=== PATIENT | male | born 1955 | race Caucasian/White ===

== ENCOUNTER 2020-04-23 18:00 | Emergency (ER) | payer MEDICARE ==
[2020-04-23] MEDS ORDERED: BABY ASPIRIN 81 MG CHEW ONE (18:28)
[2020-04-23] MEDS: BABY ASPIRIN 81 MG CHEW PO ONE ×2 (18:28→18:30)
--- NOTE | 2020-04-23 18:51 | ERPHSYRPT ---
<JOSUE PEARSON - Last Filed: 04/23/20 18:46> - History of Present Illness Time Seen by Provider: 04/23/20 18:26 Historian: patient Exam Limitations: no limitations Patient Subjective Stated Complaint: Pt states "I was watching tv and my chest started to hurt, I got dizzy and I took a nitro and it helped a little.". 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 pt resting comfortably on the bed. Physician History: 64 years old male with history of paroxysmal atrial fibrillation on Xarelto/defibrillator/pacemaker, coronary artery disease status post stenting, hypertension, hyperlipidemia presented in the ER with sudden onset substernal chest pain while he was watching TV almost an hour prior to arrival, moderate intensity, dull pressure/fullness sensation with radiation to left shoulder blade area with associated lightheadedness and dizziness but no shortness of breath or palpitations. Patient took 1 nitro and after 45 minutes it started to improve and currently pain is almost completely resolved. Denies any fever chills cough or sick contact. Timing/Duration: hour(s) (1), sudden, improved Activities at Onset: rest Quality: fullness, pressure Location: substernal Chest Pain Radiation: back Severity of Pain-Max: moderate Severity of Pain-Current: none Modifying Factors: Improves With: nitroglycerin Associated Symptoms: dizziness Prior Chest Pain/Cardiac Workup: cardiac cath Nitro Today/Relief: 0.4 mg x 1 Aspirin Treatment Today: no aspirin today Allergies/Adverse Reactions: STEROIDS Allergy (Uncoded 04/25/16 17:00) Home Medications: Atorvastatin Calcium [Lipitor 40Mg] 40 mg PO DAILY 04/25/16 [History] Carvedilol [Coreg] 25 mg PO BID 04/25/16 [History] Rivaroxaban 10 mg Tablet [Xarelto 10 mg Tablet] 10 mg PO DAILY 04/25/16 [History] Sacubitril/Valsartan [Entresto 49 mg-51 mg Tablet] 1 each PO BID 04/25/16 [History] Spironolactone 25 mg [Aldactone 25 MG] 25 mg PO DAILY 04/25/16 [History] Zolpidem Tartrate [Ambien] 10 mg PO HS 04/25/16 [History] PANTOPRAZOLE 40 mg Tablet [Protonix 40MG Tablet] 40 mg PO QAM 04/23/20 [History] Hx Tetanus, Diphtheria Vaccination/Date Given: No Hx Influenza Vaccination/Date Given: No Hx Pneumococcal Vaccination/Date Given: No Immunizations Up to Date: Yes Travel Risk - International Travel Have you traveled outside of the country in past 3 weeks: No - Coronavirus Screening Are you exhibiting any of the following symptoms?: No Close contact with a COVID-19 positive Pt in past 14-21 Days: No - Review of Systems Constitutional: No Symptoms Eyes: No Symptoms Ears, Nose, & Throat: No Symptoms Respiratory: No Symptoms Cardiac: Chest Pain Abdominal/Gastrointestinal: No Symptoms Genitourinary Symptoms: No Symptoms Musculoskeletal: No Symptoms Skin: No Symptoms Neurological: Dizziness Psychological: No Symptoms Endocrine: No Symptoms Hematologic/Lymphatic: No Symptoms Immunological/Allergic: No Symptoms - Past Medical History Pertinent Past Medical History: Yes Cardiac History: Angina, Myocardial Infarction ([place]), Other Respiratory History: COPD, Other Musculoskeletal History: Arthritis, Other Psycho-Social History: Depression - Past Surgical History Past Surgical History: Yes Cardiac: Cardiac Catheterization, Cardiac Stent, Internal Defibrillator, Pacemaker Musculoskeletal: Orthopedic Surgery Other Surgical History: LT KNEE X1. RT KNEE X3. LT GR TOE JOINT. SHOULDER SURGERY X2 - Social History Smoking Status: Former smoker How long have you smoked: 40 Exposure to second hand smoke: No Alcohol Use: None Drug Use: none Patient Lives Alone: Yes Significant Family History: heart disease - Physical Exam General Appearance: no apparent distress, alert Eye Exam: eyes nml inspection Ears, Nose, Throat Exam: normal ENT inspection, pharynx normal Neck Exam: normal inspection, supple, full range of motion Respiratory Exam: normal breath sounds, lungs clear, No chest tenderness Cardiovascular Exam: regular rate/rhythm, normal heart sounds Gastrointestinal/Abdomen Exam: soft, No tenderness Back Exam: normal inspection Extremity Exam: normal inspection, normal range of motion Neurologic Exam: alert, oriented x 3, cooperative Skin Exam: normal color SpO2 Interpretation: normal SpO2: 97 O2 Delivery: Room Air - Course EKG Interpreted by Me: RATE (72), Right Meridian Deviation, NORMAL INTERVALS, Other (Nonspecific T wave changes) - Progress Progress: improved Air Movement: good Progress Note: 04/23/20 18:50 64 years old is evaluated for sudden onset of chest pain almost an hour prior to arrival which improved with taking 1 nitro at home. EKG showed paced rhythm with no acute ST elevations. Chest pain work-up as ordered. Patient refused aspirin. Is taking Xarelto regularly. No shortness of breath. Work-up is pending at present, care is transferred to Dr. Chilel at shift change for final disposition. Blood Culture(s) Obtained: No Antibiotics given: No Discussed with : Desiree - Departure Clinical Impression: Chest pain with low risk for cardiac etiology Condition: Stable Referrals: CHARANJIT WADSWORTH [Primary Care Provider] - ELINOR SINGH MD [NON-STAFF PHY W/O PRIVILEGES] - Follow Up with PCP/3 days Instructions: Chest Pain (DC), Angina (DC) Additional Instructions: Discharge/Care Plan GAETANO NAGY was seen on 04/23/20 in the Emergency Room. The patient was counseled regarding Diagnosis,Lab results, Imaging studies, need for follow up and when to return to the Emergency Room. Prescriptions given: Discharge Note I have spoken with the patient and/or caregivers. I have explained the patient's condition, diagnosis and treatment plan based on the information available to me at this time. I have answered the patient's and/or caregiver's questions and addressed any concerns. The patient and/or caregivers have as good understanding of the patient's diagnosis, condition and treatment plan as can be expected at this point. The vital signs have been stable. The patient's condition is stable and appropriate for discharge from the emergency department. The patient will pursue further outpatient evaluation with the primary care physician or other designated or consulting physician as outlined in the discharge instructions. The patient and/or caregivers are agreeable to this plan of care and follow-up instructions have been explained in detail. The patient and/or caregivers have received these instruction. The patient/and or caregivers are aware that any significant change in condition or worsening of symptoms should prompt an immediate return to this or the closest emergency department or call 911. GAETANO NAGY was seen on 04/23/20 n the Emergency Room. At that time you were treated for an emergent condition, during your visit Laboratory, Radiology and/or other procedures may have been ordered. It is very important that you follow-up with your Primary Care Physician CHARANJIT WADSWORTH within the next 24-48 hours to review your Emergency Room visit and the final results of testing that was ordered. Some test results such as Urine Cultures, Blood Cultures, and other cultures if ordered will not be finalized for 24-48 hours. If you do not have a Primary Care Provider please call the medical records department at [phone] ext [phone] to obtain a copy of your results or you may sign into our patient portal to obtain these results by visiting us @ [email or web address] and completing the following steps: 1. Click on the Patient Portal link 2. Click the Patient Self Enrollment Link to complete the enrollment form and entering your 3. Once the enrollment form is completed you will receive an email with a temporary ID and password at the email address you provided. 4. Next choose a user name and password. Your user name must be at least 4 characters long and your password must be at least 4 characters long. 5. Choose a security question from the list and provide your answer to the question. If you already have signed into the Health Portal you may access your Health Care Information 03/12 by the following steps: 1. Login to our website @ [email or web address] 2. Enter your original user name and password. FAQS The [facility] Health Portal is an online tool that contains your Lab Results, Radiology Reports, Visit History, Discharge Instructions and Health Summary Lab and Radiology Results will not be available for 72 hours on the portal. The Portal is a secure site, passwords are encryted and URLs are re-written so they cannot be copied and pasted. You and authorized family members are the only ones who can access your Portal. Also there is a timeout feature that protects your information if you leave the Portal page open. If you have technical difficulty please use the Contact Us link on the page this will allow you to submit any questions you have regarding the Portal or you may contact the Medical Record Department at [phone] ext [phone]. Prescriptions: Nitroglycerin 0.4 mg SL Q5MIN PRN MR X 3 PRN #30 tab.subl PRN Reason: Chest Pain <KULDEEP,TRACY - Last Filed: 12/12/20 19:16> - History of Present Illness Physician History: Is denying any chest pain feeling better. - Nursing Vital Signs Nursing Vital Signs: Initial Vital Signs Temperature 97.9 F 04/23/20 18:01 Pulse Rate 66 04/23/20 18:01 Respiratory Rate 20 04/23/20 18:01 Blood Pressure 132/79 04/23/20 18:01 O2 Sat by Pulse Oximetry 97 04/23/20 18:01 Pain Scale Pain Intensity 5 - Radiology Exams Chest X-ray Interpretation: Reviewed by me, Negative, No Pneumonia, No Pneumothorax Ordered Tests: Active Orders 24 hr Category Date Time Status Security Shift Manager STAT Care 04/23/20 18:24 Active EKG-ER Only STAT Care 04/23/20 18:24 Active IV Insertion STAT Care 04/23/20 18:24 Active Oxygen-ED Only Nasal Cannula 2 lpm Care 04/23/20 18:24 Active CHEST 1 VIEW (PORTABLE) Stat Exams 04/23/20 18:24 Taken CBC W DIFF Stat Lab 04/23/20 18:38 Completed CMP Stat Lab 04/23/20 18:38 Completed NT PRO BNP Stat Lab 04/23/20 18:38 Completed TROPONIN Q3H Lab 04/23/20 Ordered TROPONIN Q3H Lab 04/23/20 18:38 Completed TROPONIN Q3H Lab 04/24/20 00:30 Ordered TROPONIN Q3H Lab 04/24/20 03:30 Ordered TROPONIN Q3H Lab 04/24/20 06:30 Ordered Medication Summary Discontinued Medications Generic Name Dose Route Start Last Admin Trade Name Freq PRN Reason Stop Dose Admin Aspirin 324 mg 04/23/20 18:24 04/23/20 18:30 Baby Aspirin 81 Mg Chew PO 04/23/20 18:25 Not Given STAT ONE Aspirin Confirm 04/23/20 18:28 Baby Aspirin 81 Mg Chew Administered 04/23/20 18:29 Dose 324 mg .ROUTE .STK-MED ONE Lab/Rad Data: Laboratory Result Diagrams 04/23/20 18:38 04/23/20 18:38 Laboratory Results 04/23/20 04/23/20 04/23/20 Range/Units 18:38 18:38 18:38 WBC 10.1 (4.0-10.5) K/mm3 RBC 5.08 (4.1-5.6) M/mm3 Hgb 14.5 (12.5-18.0) gm/dl Hct 44.3 (42-50) % MCV 87.2 (78-100) fl MCH 28.5 (26-32) pg MCHC 32.7 (32-36) g/dl RDW 13.7 (11.5-14.0) % Plt Count 285 (150-450) K/mm3 MPV 10.9 (7.5-11.0) fl Gran % 49.3 (36.0-66.0) % Eos # (Auto) 0.17 (0-0.5) Absolute Lymphs (auto) 3.67 (1.0-4.6) Absolute Monos (auto) 1.27 (0.0-1.3) Lymphocytes % 36.2 (24.0-44.0) % Monocytes % 12.5 H (0.0-12.0) % Eosinophils % 1.7 (0.00-5.0) % Basophils % 0.3 (0.0-0.4) % Absolute Granulocytes 5.00 (1.4-6.9) Basophils # 0.03 (0-0.4) Sodium 136 L (137-145) mmol/L Potassium 4.6 (3.5-5.1) mmol/L Chloride 103 (98-107) mmol/L Carbon Dioxide 28 (22-30) mmol/L Anion Gap 10.2 (5-15) MEQ/L BUN 18 (9-20) mg/dL Creatinine 1.15 (0.66-1.25) mg/dL Estimated GFR > 60.0 ML/MIN Glucose 109 H (74-106) mg/dL Calcium 9.4 (8.4-10.2) mg/dL Total Bilirubin 0.50 (0.2-1.3) mg/dL AST 17 (17-59) U/L ALT 15 (0-50) U/L Alkaline Phosphatase 85 (38-126) U/L Troponin I < 0.012 (0.000-0.034) ng/mL NT-Pro-B Natriuret Pep 369 (0-900) pg/mL Serum Total Protein 6.6 (6.3-8.2) g/dL Albumin 3.9 (3.5-5.0) g/dL - Progress Progress Note: 04/23/20 19:06 Is feeling better denies any chest pain awaiting all the labs. CBC CMP within normal range. Counseled pt/family regarding: lab results, diagnosis, need for follow-up, rad results - Departure Departure Disposition: Home Critical Care Time: Yes Critical Care Time(excluding separately billable procedures): Critical 30-74 mins
[2020-04-23 18:59] LABS: BASOPHIL % 0.3 % (0.0-0.4); Basophil (Absolute #) 0.03 (0-0.4); Eosinophil % 1.7 % (0.00-5.0); Eosinophil (Absolute #) 0.17 (0-0.5); Hematocrit 44.3 % (42-50); Hemoglobin 14.5 gm/dl (12.5-18.0); Lymphocyte (Absolute #) 3.67 (1.0-4.6); Lymphocytes % 36.2 % (24.0-44.0); Mean Cell Volume 87.2 fl (78-100); Mean Corpuscular Hemoglobin 28.5 pg (26-32); Mean Corpuscular Hgb Concent. 32.7 g/dl (32-36); Mean Platelet Volume 10.9 fl (7.5-11.0); Monocyte (Absolute #) 1.27 (0.0-1.3); Monocytes % 12.5 % (0.0-12.0); Neutrophil % 49.3 % (36.0-66.0); Platelet Count 285 K/mm3 (150-450); Red Blood Count 5.08 M/mm3 (4.1-5.6); Red Cell Distribution Width 13.7 % (11.5-14.0); White Blood Count 10.1 K/mm3 (4.0-10.5)
[2020-04-23 19:00] LABS: ALBUMIN 3.9 g/dL (3.5-5.0); ALKALINE PHOSPHATASE 85 U/L (38-126); ANION GAP 10.2 MEQ/L (5-15); BLOOD UREA NITROGEN 18 mg/dL (9-20); CHLORIDE 103 mmol/L (98-107); Calcium 9.4 mg/dL (8.4-10.2); Carbon Dioxide 28 mmol/L (22-30); Creatinine 1 1.15 mg/dL (0.66-1.25); EST GLOMERULAR FILTRATION RATE > 60.0 ML/MIN; Glucose 109 mg/dL (74-106); NT PRO BNP 369 pg/mL (0-900); Potassium 4.6 mmol/L (3.5-5.1); SGOT/AST 17 U/L (17-59); SGPT/ALT 15 U/L (0-50); SODIUM 136 mmol/L (137-145); Total Protein 6.6 g/dL (6.3-8.2)
[2020-04-23 19:36] VITALS: BP 112/65; PULSE 64; O2SAT 99
--- NOTE | 2020-04-24 07:01 | XRAY ---
Indication: Chest pain. Suspect Covid 19. Comparison: April 10, 2012. Portable apical lordotic chest again demonstrates mild right hemidiaphragm elevation with adjacent subsegmental atelectasis/scarring. No focal infiltrate, consolidation, or large effusion. Heart is not enlarged for AP portable technique and demonstrates new left-sided AICD. Bony thorax intact. Impression: Nonacute chest with chronic features.
== END 2020-04-23 19:34 | disposition home or self-care (01) ==
LOC: ED 18:00
DX: R07.9 Chest pain, unspecified (principal)
CPT/HCPCS: 36000; 36415; 71045; 80053; 83880; 84484; 85025; 93005; 93041; 99284; 99291; A9270-GY

== ENCOUNTER 2024-02-08 15:55 | Emergency (ER) | payer MEDICARE ==
[2024-02-08 16:10] VITALS: TEMP 97.7
--- NOTE | 2024-02-08 16:46 | ERPHSYRPT ---
<TRACY LIGHT - Last Filed: 02/08/24 18:48> - History of Present Illness Time Seen by Provider: 02/08/24 16:43 Historian: patient Exam Limitations: no limitations Patient Subjective Stated Complaint: pt reports for the last 3-4 days he's been experiencing shortness of breath and episodes of chest tightness that always go away with rest-pt states today he had some weakness and lightheadedness just sitting in a chair, pt reports he has a history of heart failure, afib with pacer and defib, pt also reports increased stress due to an upcoming hip replacement this week Triage Nursing Assessment: pt is aox3, afebrile, pupils perrl, pt is short of breath at rest, pt with audible wheezes, pt cap refill < 3 seconds, radial pulses strong and equal, pt heart tones normal, pt skin pink warm dry, no edema appreciated. Physician History: mr Linus Redmond is a 68 years old male reportsto ER with chest pain for the last 3-4 days he's been experiencing shortness of breath and episodes of chest tightness that always go away with rest-pt states today he had some weakness and lightheadedness just sitting in a chair, pt reports he has a history of heart failure, afib with pacemaker and defibrilator, He also reports increased stress due to an upcoming hip replacement this week Timing/Duration: today Activities at Onset: emotional stress Quality: aching Location: substernal Chest Pain Radiation: no radiation Severity of Pain-Max: mild Severity of Pain-Current: none Modifying Factors: Improves With: nothing Associated Symptoms: weakness, dizziness Nitro Today/Relief: no nitro taken today Aspirin Treatment Today: no aspirin today Body Map: 1 - area of pain Allergies/Adverse Reactions: STEROIDS Adverse Reaction (Uncoded 02/08/24 16:11) pt states he turns red and feels like he is going to pass out Home Medications: Atorvastatin Calcium [Lipitor 40Mg] 40 mg PO DAILY 04/25/16 [History] Rivaroxaban 10 mg Tablet [Xarelto 10 mg Tablet] 20 mg PO DAILY 04/25/16 [History] Sacubitril/Valsartan [Entresto 49 mg-51 mg Tablet] 1 each PO BID 04/25/16 [History] Spironolactone 25 mg [Aldactone 25 MG] 25 mg PO DAILY 04/25/16 [History] Zolpidem Tartrate [Ambien] 10 mg PO HS 04/25/16 [History] carvediloL [Coreg] 25 mg PO BID 04/25/16 [History] PANTOPRAZOLE 40 mg Tablet [Protonix 40MG Tablet] 40 mg PO QAM 04/23/20 [History] Acetaminophen 325 mg [Tylenol 325 mg] 650 mg PO BID 02/08/24 [History] Amiodarone HCl 200 mg [Cordarone 200 MG] 200 mg PO DAILY 02/08/24 [History] Aspirin EC 81 mg [Ecotrin 81 mg] 81 mg PO DAILY 02/08/24 [History] Famotidine 20 mg [Pepcid 20 MG] 20 mg PO BID 02/08/24 [History] Meloxicam 7.5 mg PO DAILY 02/08/24 [History] Mirtazapine 30 mg [Remeron 30 mg] 30 mg PO HS 02/08/24 [History] Hx Tetanus, Diphtheria Vaccination/Date Given: No Hx Influenza Vaccination/Date Given: No Hx Pneumococcal Vaccination/Date Given: No Immunizations Up to Date: Yes Travel Risk - International Travel Have you traveled outside of the country in past 3 weeks: No - Emerging Infectious Disease Are you exhibiting symptoms associated with any current EIDs: Yes Symptoms: Shortness of Breath - Review of Systems Constitutional: No Fever, No Chills Eyes: No Symptoms Ears, Nose, & Throat: No Symptoms Respiratory: No Cough, No Dyspnea Cardiac: Chest Pain, No Edema, No Syncope Abdominal/Gastrointestinal: No Abdominal Pain, No Nausea, No Vomiting, No Diarrhea Genitourinary Symptoms: No Dysuria Musculoskeletal: No Back Pain, No Neck Pain Skin: No Rash Neurological: No Dizziness, No Focal Weakness, No Sensory Changes Psychological: No Symptoms Endocrine: No Symptoms All Other Systems: Reviewed and Negative - Past Medical History Pertinent Past Medical History: Yes Cardiac History: Angina, Myocardial Infarction ([place]), Other Respiratory History: CHF, Other Musculoskeletal History: Arthritis, Other Psycho-Social History: Depression - Past Surgical History Past Surgical History: Yes Cardiac: Cardiac Catheterization, Cardiac Stent, Internal Defibrillator, Pacemaker Musculoskeletal: Orthopedic Surgery Other Surgical History: LT KNEE X1. RT KNEE X3. LT GR TOE JOINT. SHOULDER SURGERY X2 Significant Family History: heart disease - Social History Smoking Status: Former smoker How long have you smoked: 40 Exposure to second hand smoke: No Alcohol Use: None Drug Use: none Patient Lives Alone: Yes - Social Determinants of Health Will the patient participate in the screening: Yes Do you worry about a steady place to live?: No Do you have any problems with any of the following?: No known problems In the past 12 months,have you had to go without utilities?: No Transportation Issues: No Has anyone in your support network made you feel unsafe?: No Have you or anyone in your house had to go without enough: No - Physical Exam General Appearance: no apparent distress, alert, obese Eye Exam: PERRL/EOMI, eyes nml inspection Ears, Nose, Throat Exam: normal ENT inspection, moist mucous membranes Neck Exam: normal inspection, non-tender, supple, full range of motion Respiratory Exam: normal breath sounds, lungs clear, No respiratory distress Cardiovascular Exam: regular rate/rhythm, normal heart sounds Gastrointestinal/Abdomen Exam: soft, No tenderness, No mass Back Exam: normal inspection, No CVA tenderness, No vertebral tenderness Extremity Exam: normal inspection, normal range of motion Neurologic Exam: alert, oriented x 3, cooperative, normal mood/affect, sensation nml, No motor deficits Skin Exam: normal color, warm, dry SpO2: 97 - Course Nursing assessment & vital signs reviewed: Yes EKG Interpreted by Me: Sinus Rhythm Rhythm Strip: Normal Sinus Rhythm - Progress Progress: improved Air Movement: good Progress Note: 02/08/24 18:11 Patient all labs are negative except for troponin which is 0.077. Normal ranges up to 0.033. Patient denies any chest pain shortness of breath or any other heart related symptoms. As patient has a pacemaker and defibrillator as well as patient has a history of chronic congestive heart failure troponin elevation is usually present. We will repeat another troponin level at 1900 hrs. If trend goes down we will try to discharge patient home. Blood Culture(s) Obtained: No Antibiotics given: No Counseled pt/family regarding: lab results, diagnosis, need for follow-up - Departure Clinical Impression: Chest tightness, Dyspnea Condition: Stable Referrals: CHARANJIT WADSWORTH NP [Primary Care Provider] - Follow up/PCP as directed Instructions: Chest Pain, Adult ED Additional Instructions: Follow up with private doctor tomorrow. Return to ER if any problems. <JENNIFER CULVER - Last Filed: 02/08/24 20:19> - Nursing Vital Signs Nursing Vital Signs: Initial Vital Signs Temperature 97.7 F 02/08/24 15:57 Pulse Rate 80 02/08/24 15:57 Respiratory Rate 24 02/08/24 15:57 Blood Pressure 162/81 02/08/24 15:57 O2 Sat by Pulse Oximetry 97 02/08/24 15:57 Pain Scale Pain Intensity 0 Ordered Tests: Active Orders 24 hr Category Date Time Status EKG-ER Only STAT Care 02/08/24 16:28 Active EKG-ER Only STAT Care 02/08/24 19:11 Active CHEST 1 VIEW (PORTABLE) Stat Exams 02/08/24 16:47 Taken CBC W DIFF Stat Lab 02/08/24 17:06 Completed CMP Stat Lab 02/08/24 17:06 Completed NT PRO BNPII Stat Lab 02/08/24 17:06 Completed TROPONIN Q4H Lab 02/08/24 19:10 Completed TROPONIN Stat Lab 02/08/24 17:06 Completed Lab/Rad Data: Laboratory Result Diagrams 02/08/24 17:06 02/08/24 17:06 Laboratory Results 02/08/24 02/08/24 02/08/24 Range/Units 19:10 17:06 17:06 WBC (4.23-9.07) x10^3/uL RBC (4.63-6.08) x10^6/uL Hgb (13.7-17.5) g/dL Hct (40.1-51.0) % MCV (79.0-92.2) fL MCH (25.7-32.2) pg MCHC (32.3-36.5) g/dL RDW (11.6-14.4) % Plt Count (163-337) x10^3/uL MPV (9.4-12.4) fL Gran % (34.0-67.9) % Immature Gran % (Auto) (0.001-0.429) % Nucleat RBC Rel Count (0.00-0.2) % Eos # (Auto) (0.04-0.54) x10^3/uL Immature Gran # (Auto) (0.001-0.031) x10^3u/L Absolute Lymphs (auto) (1.32-3.57) x10^3/uL Absolute Monos (auto) (0.30-0.82) x10^3/uL Absolute Nucleated RBC (0.00-0.012) x10^3u/L Lymphocytes % (21.8-53.1) % Monocytes % (5.3-12.2) % Eosinophils % (0.8-7.0) % Basophils % (0.2-1.2) % Absolute Granulocytes (1.78-5.38) x10^3/uL Basophils # (0.01-0.08) x10^3/uL Sodium 139 (135-145) mmol/L Potassium 3.8 (3.5-5.1) mmol/L Chloride 101 (98-107) mmol/L Carbon Dioxide 29 (22-30) mmol/L Anion Gap 12.7 (5-15) MEQ/L BUN 12 (9-20) mg/dL Creatinine 1.03 (0.66-1.25) mg/dL Estimated GFR 78.2 ML/MIN Glucose 122 H (74-106) mg/dL Calcium 9.1 (8.4-10.2) mg/dL Total Bilirubin 0.80 (0.2-1.3) mg/dL AST 21 (17-59) U/L ALT 19 (0-50) U/L Alkaline Phosphatase 108 (38-126) U/L Troponin I 0.071 H* 0.077 H* (0.000-0.033) ng/mL NT-Pro-B Natriuret Pep 4010 (<300) pg/mL Serum Total Protein 6.8 (6.3-8.2) g/dL Albumin 4.0 (3.5-5.0) g/dL 02/08/24 Range/Units 17:06 WBC 6.6 (4.23-9.07) x10^3/uL RBC 4.23 L (4.63-6.08) x10^6/uL Hgb 12.4 L (13.7-17.5) g/dL Hct 38.1 L (40.1-51.0) % MCV 90.1 (79.0-92.2) fL MCH 29.3 (25.7-32.2) pg MCHC 32.5 (32.3-36.5) g/dL RDW 13.8 (11.6-14.4) % Plt Count 241 (163-337) x10^3/uL MPV 11.6 (9.4-12.4) fL Gran % 52.5 (34.0-67.9) % Immature Gran % (Auto) 0.2 (0.001-0.429) % Nucleat RBC Rel Count 0.0 (0.00-0.2) % Eos # (Auto) 0.14 (0.04-0.54) x10^3/uL Immature Gran # (Auto) 0.01 (0.001-0.031) x10^3u/L Absolute Lymphs (auto) 2.27 (1.32-3.57) x10^3/uL Absolute Monos (auto) 0.66 (0.30-0.82) x10^3/uL Absolute Nucleated RBC 0.00 (0.00-0.012) x10^3u/L Lymphocytes % 34.6 (21.8-53.1) % Monocytes % 10.1 (5.3-12.2) % Eosinophils % 2.1 (0.8-7.0) % Basophils % 0.5 (0.2-1.2) % Absolute Granulocytes 3.45 (1.78-5.38) x10^3/uL Basophils # 0.03 (0.01-0.08) x10^3/uL Sodium (135-145) mmol/L Potassium (3.5-5.1) mmol/L Chloride (98-107) mmol/L Carbon Dioxide (22-30) mmol/L Anion Gap (5-15) MEQ/L BUN (9-20) mg/dL Creatinine (0.66-1.25) mg/dL Estimated GFR ML/MIN Glucose (74-106) mg/dL Calcium (8.4-10.2) mg/dL Total Bilirubin (0.2-1.3) mg/dL AST (17-59) U/L ALT (0-50) U/L Alkaline Phosphatase (38-126) U/L Troponin I (0.000-0.033) ng/mL NT-Pro-B Natriuret Pep (<300) pg/mL Serum Total Protein (6.3-8.2) g/dL Albumin (3.5-5.0) g/dL - Progress Progress Note: 02/08/24 19:[address] Culver @ 1900: eomi, pharynx pink, lungs have clear breath sounds, no cardiac rub, abdominal B.S. normal, no ankle edema, alert & cooperative., 02/08/24 19:32 Repeat EKG @ 1926: Ventricular paced rhythm @ 68. 02/08/24 20:15 Pt refuses hospitalization. - Departure Departure Disposition: Home Critical Care Time: No
[2024-02-08 17:09] LABS: Absolute Neutrophil Ct (ANC) 3.45 x10^3/uL (1.78-5.38); BASOPHIL % 0.5 % (0.2-1.2); Basophil (Absolute #) 0.03 x10^3/uL (0.01-0.08); Eosinophil % 2.1 % (0.8-7.0); Eosinophil (Absolute #) 0.14 x10^3/uL (0.04-0.54); Hematocrit 38.1 % (40.1-51.0); Hemoglobin 12.4 g/dL (13.7-17.5); IMMATURE GRAN # 0.01 x10^3u/L (0.001-0.031); IMMATURE GRAN % 0.2 % (0.001-0.429); Lymphocyte (Absolute #) 2.27 x10^3/uL (1.32-3.57); Lymphocytes % 34.6 % (21.8-53.1); Mean Cell Volume 90.1 fL (79.0-92.2); Mean Corpuscular Hemoglobin 29.3 pg (25.7-32.2); Mean Corpuscular Hgb Concent. 32.5 g/dL (32.3-36.5); Mean Platelet Volume 11.6 fL (9.4-12.4); Monocyte (Absolute #) 0.66 x10^3/uL (0.30-0.82); Monocytes % 10.1 % (5.3-12.2); Neutrophil % 52.5 % (34.0-67.9); Platelet Count 241 x10^3/uL (163-337); Red Blood Count 4.23 x10^6/uL (4.63-6.08); Red Cell Distribution Width 13.8 % (11.6-14.4); White Blood Count 6.6 x10^3/uL (4.23-9.07)
[2024-02-08 17:36] LABS: ANION GAP 12.7 MEQ/L (5-15); BILIRUBIN,TOTAL 0.8 mg/dL (0.2-1.3); Calcium 9.1 mg/dL (8.4-10.2); Creatinine 1 1.03 mg/dL (0.66-1.25); EST GLOMERULAR FILTRATION RATE 78.2 ML/MIN; Potassium 3.8 mmol/L (3.5-5.1); Total Protein 6.8 g/dL (6.3-8.2)
[2024-02-08 18:00] LABS: TROPONIN 0.077 ng/mL (0.000-0.033)
[2024-02-08 20:20] VITALS: BP 133/108; PULSE 77; RESP 21; O2SAT 96
--- NOTE | 2024-02-08 21:55 | XRAY ---
Indication: Chest pain. Comparison: April 23, 2020 Portable apical lordotic chest again demonstrates subtle right infrahilar infiltrate/atelectasis. Remaining heart and left lung unremarkable again with left AICD. Bony thorax intact.
== END 2024-02-08 20:27 | disposition home or self-care (01) ==
LOC: ED 15:55
DX: R07.9 Chest pain, unspecified (principal); R06.00 Dyspnea, unspecified; R53.1 Weakness; R42 Dizziness and giddiness; I50.9 Heart failure, unspecified; Z79.01 Long term (current) use of anticoagulants; Z79.899 Other long term (current) drug therapy
CPT/HCPCS: 36415; 71045; 80053; 83880; 84484; 85025; 93005; 99284

== ENCOUNTER 2025-03-19 11:28 | Emergency (ER) | payer MEDICARE ==
[2025-03-19 11:33] VITALS: TEMP 98.4
[2025-03-19] MEDS ORDERED: TYLENOL EXTRA STRENGTH 500 MG ONE (13:53)
[2025-03-19] MEDS: TYLENOL EXTRA STRENGTH 500 MG PO STA (13:54)
[2025-03-19 15:03] VITALS: O2SAT 96
[2025-03-19 15:54] LABS: Calcium 9.5 mg/dL (8.4-10.2); Carbon Dioxide 29.0 mmol/L (22-30); Creatinine 1 1.41 mg/dL (0.66-1.25); EST GLOMERULAR FILTRATION RATE 53.3 ML/MIN; Glucose 125.0 mg/dL (74-106); Potassium 4.7 mmol/L (3.5-5.1); SGOT/AST 19.0 U/L (17-59); SGPT/ALT 15.0 U/L (0-50); Total Protein 7.1 g/dL (6.3-8.2)
--- NOTE | 2025-03-19 16:08 | ERPHSYRPT ---
- History of Present Illness Time Seen by Provider: 03/19/25 15:33 Source: patient Patient Subjective Stated Complaint: pt states he is having left leg sciatica pain Triage Nursing Assessment: PT ARRIVES TO ED VIA AMBULANCE FROM HOME WHERE HE LIVES ALONE. PT IS ABLE TO TRANSFER HIMSELF FROM THE STRETCHER TO THE ER COT. PT IS ALERT AND ORIENTED X4, NO SIGNS OF RESPIRATORY DISTRESS, PULSES PRESENT AND EQUAL BILATERALLY. PT STATES HE HAS BEEN HAVING SCIATICA PAIN IN THE LEFT LEG FOR FOUR DAYS NOW. STATES THAT IT START IN HIS LOWER BACK AND HIP AND RADIATES DOWN THE LEG INTO THE ANKLE. PT STATES THAT HE HAS USED ICE WHICH HAS HELPED A LITTLE AND TAKEN AN OXYCODONE FROM PAST SURGERY WHICH ONLY HELPED FOR 15 MINUTES. PT STATES THAT HE HAD HIP SURGERY FEBRUARY 11, 2024. PT STATES THAT WHEN HE WOKE UP TODAY HE TRIED TO STAND AND FELT LIKE THE LEG WAS GOING TO GIVE OUT AND CURVE IN MAKING HIM FALL. PT STATES HIS MAIN CONCERN IS THAT THERE IS SOMETHING WRONG WITH THE HIP JOINT THAT WAS REPLACED. PT ALSO STATES THAT HE IS NOT ABLE TO GET ADEQUATE SLEEP DUE TO THE PAIN, EVEN WITH REPOSITIONING. Physician History: CC: Pain in left hip area HPI: history from nursing triage notes, patient He notes that he has sciatica and this has been ongoing for many years since he was young. He notes that he used to get episodes flaring up several times per month but these had tapered down over the years. Last year he did have left hip total arthroplasty on 03/02/2024 and he had done well with this. He notes he has a mechanical bed to assist him with positioning at night because he changes positions multiple times related to his chronic back pain and sciatica. This morning he noted that he had to be in an almost upright position in order to get some sleep which is unusual for him. Then as he got out of bed he noted that rather than his left leg moving to the side as he would typically want it seem to be moving more towards an anterior motion (he is trying to describe partial flexion of the thigh on the hip). He notes that has seemed to improve he is wondering if he had potentially dislocated the prosthesis. He notes that he has a stool in the kitchen that he sits on and when he sits on it it tends to "move" his body habitus around into a more anterior position. He is wondering if he had reset or relocated his hip. He is ambulating now but still has some pain He denies any fall or injury/direct impact He did take a single dose 7.5 meloxicam yesterday evening that did not seem to help His daily 650 mg acetaminophen twice daily dosing has not seemed to help he did have some leftover oxycodone from his hip surgery last year (3 tablets) he took a single tablet and he notes "That helped for about 15 minutes." _ lives at home non smoker Pulseox: % on RA normal Past medical history includes Pre- diabetes High blood pressure Morbid obesity Chronic pain Arthritis Allergies/Adverse Reactions: STEROIDS Adverse Reaction (Uncoded 03/19/25 11:45) pt states he turns red and feels like he is going to pass out Home Medications: Atorvastatin Calcium [Lipitor 40Mg] 40 mg PO DAILY 04/25/16 [History] Rivaroxaban 10 mg Tablet [Xarelto 10 mg Tablet] 20 mg PO DAILY 04/25/16 [History] Sacubitril/Valsartan [Entresto 49 mg-51 mg Tablet] 1 each PO BID 04/25/16 [History] Spironolactone 25 mg [Aldactone 25 MG] 25 mg PO DAILY 04/25/16 [History] Zolpidem Tartrate [Ambien] 10 mg PO HS 04/25/16 [History] carvediloL [Coreg] 25 mg PO BID 04/25/16 [History] PANTOPRAZOLE 40 mg Tablet [Protonix 40MG Tablet] 40 mg PO BID 04/23/20 [History] Acetaminophen 325 mg [Tylenol 325 mg] 650 mg PO BID 02/08/24 [History] Aspirin EC 81 mg [Ecotrin 81 mg] 81 mg PO DAILY 02/08/24 [History] Famotidine 20 mg [Pepcid 20 MG] 20 mg PO BID 02/08/24 [History] Meloxicam 7.5 mg PO DAILY 02/08/24 [History] Mirtazapine 30 mg [Remeron 30 mg] 30 mg PO HS 02/08/24 [History] Pioglitazone HCl 15 mg PO DAILY 03/19/25 [History] Potassium Chloride 10 meq PO DAILY 03/19/25 [History] Torsemide 20 mg [Demadex 20 mg] 20 mg PO DAILY 03/19/25 [History] Hx Tetanus, Diphtheria Vaccination/Date Given: (UNAWARE) Hx Influenza Vaccination/Date Given: No Hx Pneumococcal Vaccination/Date Given: No Immunizations Up to Date: Yes Travel Risk - International Travel Have you traveled outside of the country in past 3 weeks: No - Emerging Infectious Disease Are you exhibiting symptoms associated with any current EIDs: No Symptoms: Shortness of Breath - Past Medical History Pertinent Past Medical History: Yes Neurological History: No Pertinent History ENT History: No Pertinent History Cardiac History: Angina, Congestive Heart Failure, Myocardial Infarction (MA), Other Respiratory History: Other Endocrine Medical History: No Pertinent History Musculoskeletal History: Arthritis, Other GI Medical History: GERD History: No Pertinent History Psycho-Social History: No Pertinent History Male Reproductive Disorders: No Pertinent History Other Medical History: MA 2012 - stents x 2. AICD/pacemaker 2018 - Past Surgical History Past Surgical History: Yes Neuro Surgical History: No Pertinent History Cardiac: Cardiac Catheterization, Cardiac Stent, Internal Defibrillator, Pacemaker Respiratory: No Pertinent History Gastrointestinal: No Pertinent History Genitourinary: No Pertinent History Musculoskeletal: Joint Replacement, Orthopedic Surgery Male Surgical History: No Pertinent History Other Surgical History: LT KNEE X2. RT KNEE X3. LT GR TOE JOINT. SHOULDER SURGERY X2, HIP REPLACEMENT 2023 Significant Family History: heart disease - Social History Smoking Status: Never smoker Exposure to second hand smoke: No Drug Use: none - Social Determinants of Health Will the patient participate in the screening: Yes Do you worry about a steady place to live?: No Do you have any problems with any of the following?: No known problems In the past 12 months,have you had to go without utilities?: No Transportation Issues: No Has anyone in your support network made you feel unsafe?: No Have you or anyone in your house had to go w/o enough food: No - Nursing Vital Signs Nursing Vital Signs: Initial Vital Signs Temperature 98.4 F 03/19/25 11:32 Pulse Rate 83 03/19/25 11:32 Respiratory Rate 19 03/19/25 11:32 Blood Pressure 128/85 03/19/25 11:32 O2 Sat by Pulse Oximetry 95 03/19/25 11:32 Pain Scale Pain Intensity 7 - Physical Exam SpO2 Interpretation: normal SpO2: 96 O2 Delivery: Room Air Comments: NAD, A&O, nontoxic. Pleasant. No pain distress at rest but appears uncomfortable. When he is trying to move or change position he does have increased pain. Also mild to moderate pain distress on exam of the left hip area. No physiologic distress. Appears to be a senior with medical problems with concern about his symptom . Eyes: spontaneous EOMI, nonicteric, conjunctiva clear Throat: Moist mucous membranes. Neck: spontaneous ROM, without pain. Lungs: no distress, nl effort Skin: warm, dry, normal turgor. no gross rash. Good muscle tone and moves all extremities spontaneously. He does not have ankle clonus. Negative Sophie signs bilaterally. He does have pain with palpation of both calves but he notes this is usual with his sciatica pain. He does have pain at the left hip prosthesis area. No unusual warmth at this area nor at the right side. I do not identify any contusion to either side. His left sided arthroplasty scar is well-healed and clean. He is able to stand at bedside I do not identify any significant step-off at the left hip prosthesis. Ordered Tests: Active Orders 24 hr Category Date Time Status HIP UNI (2V) INCL PEL IF DONE Stat Exams 03/19/25 16:06 Taken CMP Stat Lab 03/19/25 15:30 Completed MAGNESIUM Stat Lab 03/19/25 15:30 Completed Medication Summary Discontinued Medications Generic Name Dose Route Start Last Admin Trade Name Regulo PRN Reason Stop Dose Admin Acetaminophen 1,000 mg 03/19/25 13:52 03/19/25 13:54 Acetaminophen 500 Mg Tablet PO 03/19/25 13:53 1,000 mg STAT STA Administration Acetaminophen Confirm 03/19/25 13:53 Acetaminophen 500 Mg Tablet Administered 03/19/25 13:54 Dose 1,000 mg .ROUTE .STK-MED ONE Dexamethasone Sodium Phosphate 8 mg 03/19/25 16:06 03/19/25 16:16 Dexamethasone Sod Phosphate 10 Mg/Ml IM 03/19/25 16:07 8 mg STAT ONE Administration Dexamethasone Sodium Phosphate Confirm 03/19/25 16:13 Dexamethasone Sod Phosphate 10 Mg/Ml Administered 03/19/25 16:14 Dose 10 mg .ROUTE .STK-MED ONE Lab/Rad Data: Laboratory Result Diagrams 03/19/25 15:30 Laboratory Results 03/19/25 03/19/25 Range/Units 15:30 15:30 Sodium 137 (135-145) mmol/L Potassium 4.7 (3.5-5.1) mmol/L Chloride 100 (98-107) mmol/L Carbon Dioxide 29 (22-30) mmol/L Anion Gap 12.9 (5-15) MEQ/L BUN 24 H (9-20) mg/dL Creatinine 1.41 H (0.66-1.25) mg/dL Estimated GFR 53.3 ML/MIN Glucose 125 H (74-106) mg/dL Calcium 9.5 (8.4-10.2) mg/dL Magnesium 2.2 (1.6-2.3) mg/dL Total Bilirubin 0.70 (0.2-1.3) mg/dL AST 19 (17-59) U/L ALT 15 (0-50) U/L Alkaline Phosphatase 89 (38-126) U/L Serum Total Protein 7.1 (6.3-8.2) g/dL Albumin 4.5 (3.5-5.0) g/dL - Progress Progress Note: 03/19/25 16:04 Left hip arthroplasty pain this morning and he seemed to note that his left foot moved differently than usual when he was trying to move his leg. The latter has improved but he still has some pain at the left hip arthroplasty is wondering if he had dislocated it On exam he does have pain at the left hip area. No unusual warmth or swelling. As noted above no contusions. I will complete an x-ray of the left hip. Because he does have the dual diuretic therapy a Chem-6 and magnesium level are pending. I do not believe that CBC or procalcitonin are warranted or indicated at this time. For his discomfort because he cannot take NSAIDs will have him start on dexamethasone. I did offer this is oral versus IM and he does not have a preference. I will reevaluate after reviewing lab tests as well as x-ray. 03/19/25 16:47 I do review and note on his x-ray. He does have chronic changes related to the arthroplasty no acute fracture or dislocation I do not identify any hardware fracture either. Have reviewed labs discussed with patient he does note that his creatinine is elevated from time to time He is feeling much better after having the dexamethasone injection. We discussed need for him to follow-up on a outpatient basis with his primary care provider and he is agreeable with this Plan will be for dexamethasone 4 mg daily for the next 3 days and then the outpatient follow-up. He is pleased that his potassium and magnesium are normal and that he is already feeling a lot better than what he did when he came in. We have discussed that I cannot provide an exact etiology for why he had this episode but he will need to follow-up with his primary care provider I believe he is reliable and will follow-up - Departure Departure Disposition: Home Clinical Impression: Hip pain, left, Sciatica Condition: Good Critical Care Time: No Referrals: CHARANJIT WADSWORTH NP [Primary Care Provider, [facility]] - Follow up/PCP as directed Instructions: Hip pain in adults Additional Instructions: t this time I cannot provide any exact cause for your symptoms/problem. You need to follow up with your primary care provider or urgent care even if you feel perfectly fine. You need reevaluation and may need additional testing. You need to follow up with your primary care provider in _3-5 days. Please call for an appointment. For comfort or muscle spasm/ache you may try heat :: Rest. Warm moist heat and gentle massage. Avoid overuse / re-injury. For comfort or bone/joint aches you may try cool :: Rest as possible. Avoid re-injury / overuse. Ice 15 minutes 3-4 times daily for 4-5 days. Recline as possible. Return to recheck with your doctor or to ER for questions, concerns, problems, worsening, fever greater than 102 not responding to medication, fever greater than 102, trouble breathing, persistent vomiting, personality changes INITIAILLY :: No ibuprofen / naproxen / or additional aspirin while on the dexamethasone. You may continue to take generic Tylenol as labelled for aches/fever. THEN :: You may use your home prescriptions as advised by your primary care provider and tone regulator. You may continue to use generic acetaminophen as labeled Prescriptions: Dexamethasone 4 mg [Decadron 4 MG] 4 mg PO DAILY #3 tablet
[2025-03-19] MEDS ORDERED: DECADRON 10MG INJ. ONE (16:13)
[2025-03-19 16:16] VITALS: BP 115/77; PULSE 66; RESP 16
[2025-03-19] MEDS: DECADRON 10MG INJ. IM ONE (16:16)
--- NOTE | 2025-03-19 23:23 | XRAY ---
Indication: Left hip arthroplasty pain. Comparison: May 24, 2023 AP pelvis and 2 view left hip demonstrates interval intact left total hip arthroplasty. Stable osteopenia, mild/moderate lower lumbar degenerative spondylosis, and moderate scattered vascular calcifications. No acute bony, articular, or soft tissue abnormalities.
== END 2025-03-19 17:00 | disposition home or self-care (01) ==
LOC: ED 11:28
DX: M54.32 Sciatica, left side (principal); M25.552 Pain in left hip; Z79.01 Long term (current) use of anticoagulants; Z79.899 Other long term (current) drug therapy